=== PATIENT | male | born 1995 | race Caucasian/White ===

== ENCOUNTER → 2018-07-03 | Outpatient (CLI) | payer BC ==
--- NOTE | 2018-07-03 10:59 | MRI ---
Study: MRI of the Left Knee. Indication: PAIN IN LEFT KNEE Technique: Multiplanar, multi sequence MRI of the left knee was obtained without intravenous contrast. Comparison: None. Findings: ACL, PCL, MCL, and lateral collateral ligament complex intact. Medial meniscus and lateral meniscus intact. No high-grade chondral defect throughout the knee. Patellofemoral extensor mechanism intact. Patella normally located. Small knee effusion. No acute fracture. Impression: Intact menisci and ligaments. Small knee effusion. Electronically signed by: Dariel Gautam MD 07/03/2018 10:58 AM CDT
== END ==
LOC: RAD 07-02 14:44
PROVIDERS: ATTEND Family Medicine
DX: M25.562 Pain in left knee (principal); M25.462 Effusion, left knee

== ENCOUNTER 2019-05-01 23:28 | Emergency (ER) | payer BC ==
[2019-05-01] MEDS ORDERED: HALOPERIDOL LACTATE INJ 5 MG/ML VIAL IV ONE (23:54)
[2019-05-01] MEDS ORDERED: METOCLOPRAMIDE HCL INJ 10 MG/2 ML VIAL IV ONE (23:54)
[2019-05-01] MEDS ORDERED: KETOROLAC TROMETHAMINE INJ 30 MG/ML VIAL IV ONE (23:54)
[2019-05-01] MEDS ORDERED: diphenhydrAMINE HCL 50 MG/ML VIAL IV STA (23:54)
--- NOTE | 2019-05-02 00:02 | ED.PDOC ---
History of Present Illness - General Chief Complaint: Headache Time Seen by Provider: 05/01/19 23:52 Source: patient Exam Limitations: no limitations - History of Present Illness Initial Comments: THIS PATIENT COMES TO THE ED WITH A ONE WEEK HX OF A UNIVERSAL POWERS, RETRO-OCULAR ASSOCIATED WITH NAUSEA AND VOMIT AND SCOTOMAS. HE WAS AT WORK AND THEY NOTED THAT HIS BP WAS ELEVATED AND LORA TO COME TO THE ED. HE HAS BEEN TAKING IBUPROFEN AND TYLNOL. DENIES ANY FEVER. HE DOESN'T HAVE A HX OF HEADACHES. Timing/Duration: 1 week Quality: moderate Head Injury Location: frontal Recent Head Trauma: occasional headaches Improving Factors: nothing Worsening Factors: nothing Associated Symptoms: denies symptoms Allergies/Adverse Reactions: Allergies NO KNOWN ALLERGY Allergy (Verified 08/02/14 17:57) Home Medications: Ambulatory Orders HYDROcodone 5MG/APAP 325MG [Garnavillo 5/325] 1 ea PO PRN PRN 08/02/14 Ibuprofen [Motrin Tab] 600 mg PO Q8H PRN #15 tab 08/02/14 Review of Systems - Review of Systems Constitutional: States: no symptoms reported EENTM: States: blurred vision Respiratory: States: no symptoms reported Cardiology: States: no symptoms reported Gastrointestinal/Abdominal: States: nausea, vomiting Genitourinary: States: no symptoms reported Musculoskeletal: States: no symptoms reported Skin: States: no symptoms reported Neurological: States: see HPI, headache Endocrine: States: no symptoms reported Hematologic/Lymphatic: States: no symptoms reported Past Medical History (General) - Patient Medical History Hx Seizures: No Hx Stroke: No Hx Dementia: No Hx Asthma: No Hx of COPD: No Hx Cardiac Disorders: No Hx Congestive Heart Failure: No Hx Pacemaker: No Hx Hypertension: No Hx Thyroid Disease: No Hx Diabetes: No Hx Gastroesophageal Reflux: No Hx Renal Disease: No Hx Cancer: No Hx of HIV: No Hx Hepatitis C: No Hx MRSA: No - Vaccination History Hx Tetanus, Diphtheria Vaccination: Yes Hx Influenza Vaccination: No Hx Pneumococcal Vaccination: No - Social History Hx Tobacco Use: No Hx Chewing Tobacco Use: No Hx Alcohol Use: No Hx Substance Use: No Hx Substance Use Treatment: No Hx Depression: No Hx Physical Abuse: No Hx Emotional Abuse: No Hx Suspected Abuse: No - Female History Patient : No Family Medical History - Family History Paternal Grandparents Living Status: Still Living Hx Family Cancer: Yes - breast Maternal Grandparents Living Status: Still Living Hx Cardiac Disease: Yes Physical Exam - Physical Exam General Appearance: Alert, Well Developed, Other - SEEMS TO BE IN MODERATE DISTRESS Eyes, Ears, Nose, Throat Exam: PERRL/EOMI, TMs normal Neck: non-tender, full range of motion, supple, trachea midline Cardiovascular/Chest: normal peripheral pulses, regular rate, rhythm, no edema, no gallop, no JVD Respiratory: chest non-tender, lungs clear, normal breath sounds, no respiratory distress, no accessory muscle use Gastrointestinal/Abdominal: non tender Back Exam: normal inspection Extremity: normal range of motion, non-tender Mental Status: alert, oriented x 3 supervisor of operations Exam: normal hearing, normal speech Motor/Sensory: no motor deficit, no sensory deficit, no pronator drift Skin Exam: warm/dry Progress - Progress Progress: 05/02/19 01:11 CT OF THE BRAIN IS NEGATIVE FOR ACUTE PROCESS. THE PATIENT VOICES HEADACHE 0/10. FEELS BETTER AND DESIRES TO GO HOME,. - Results/Orders Results/Orders: 05/01/19 23:54 diphenhydrAMINE HCL [Benadryl] 50 mg IV ONCE STA Laboratory Results WBC 9.4 K/mm3 (4.8-10.8) 05/01/19 23:53 RBC 5.71 M/mm3 (4.70-6.10) 05/01/19 23:53 Hgb 16.7 gm/dL (14.0-18.0) 05/01/19 23:53 Hct 47.6 % (42.0-52.0) 05/01/19 23:53 MCV 83.5 fl (80.0-94.0) 05/01/19 23:53 MCH 29.4 pg (27.0-31.0) 05/01/19 23:53 MCHC 35.2 g/dL (33.0-37.0) 05/01/19 23:53 RDW 12.4 % (11.5-14.5) 05/01/19 23:53 Plt Count 371 K/mm3 (130-400) 05/01/19 23:53 MPV 6.5 fl (7.40-10.4) L 05/01/19 23:53 Absolute Neuts (auto) 4.50 K/uL (1.8-6.8) 05/01/19 23:53 Absolute Lymphs (auto) 3.80 K/uL (1.0-3.4) H 05/01/19 23:53 Absolute Monos (auto) 0.80 K/uL (0.2-0.8) 05/01/19 23:53 Absolute Eos (auto) 0.20 K/uL (0.0-0.4) 05/01/19 23:53 Absolute Basos (auto) 0.10 K/uL (0.0-0.1) 05/01/19 23:53 Neutrophils % 48.0 % (42.0-78.0) 05/01/19 23:53 Lymphocytes % 40.8 % (20.0-50.0) 05/01/19 23:53 Monocytes % 8.4 % (2.0-9.0) 05/01/19 23:53 Eosinophils % 1.9 % (1.0-5.0) 05/01/19 23:53 Basophils % 0.9 % (0.0-2.0) 05/01/19 23:53 Sodium 137 mmol/L (135-145) 05/01/19 23:53 Potassium 3.5 mmol/L (3.6-5.0) L 05/01/19 23:53 Chloride 105 mmol/L (101-111) 05/01/19 23:53 Carbon Dioxide 21 mmol/L (21-31) 05/01/19 23:53 Anion Gap 14.5 (12-18) 05/01/19 23:53 BUN 9 mg/dL (7-18) 05/01/19 23:53 Creatinine 1.21 mg/dL (0.6-1.3) 05/01/19 23:53 BUN/Creatinine Ratio 7.4 (10-20) L 05/01/19 23:53 Random Glucose 97 mg/dL (70-105) 05/01/19 23:53 Serum Osmolality 272.4 mOsm/L (275-295) L 05/01/19 23:53 Calcium 10.3 mg/dL (8.4-10.2) H 05/01/19 23:53 Total Bilirubin 0.4 mg/dL (0.2-1.0) 05/01/19 23:53 AST 30 IU/L (10-42) 05/01/19 23:53 ALT 33 IU/L (10-60) 05/01/19 23:53 Alkaline Phosphatase 60 IU/L (42-121) 05/01/19 23:53 Serum Total Protein 7.4 gm/dL (6.4-8.2) 05/01/19 23:53 Albumin 4.3 g/dl (3.2-5.5) 05/01/19 23:53 Globulin 3.1 gm/dL (2.3-3.5) 05/01/19 23:53 Albumin/Globulin Ratio 1.4 (1.1-1.9) 05/01/19 23:53 Departure - Departure Clinical Impression: Headache Qualifiers: Headache type: unspecified Headache chronicity pattern: acute headache Intractability: intractable Qualified Code(s): R51 - Headache Time of Disposition: 01:13 Disposition: Discharge to Home or Self Care Condition: Good Departure Forms: ED Discharge - Pt. Copy, Patient Portal Self Enrollment Instructions: DI for Headache Referrals: DEJA TOPETE MD [Primary Care Provider] - 1-2 Weeks Home Medications: Ambulatory Orders HYDROcodone 5MG/APAP 325MG [Garnavillo 5/325] 1 ea PO PRN PRN 08/02/14 Ibuprofen [Motrin Tab] 600 mg PO Q8H PRN #15 tab 08/02/14
[2019-05-02] MEDS ORDERED: diphenhydrAMINE HCL 50 MG/ML VIAL ONE (00:06)
[2019-05-02] MEDS ORDERED: diphenhydrAMINE HCL 50 MG/ML VIAL IV ONE (00:12)
--- NOTE | 2019-05-02 00:58 | CT ---
EXAM: CT Head Without Intravenous Contrast CLINICAL HISTORY: The patient is 24 years old and is Male; severe headache TECHNIQUE: Axial computed tomography images of the head/brain without intravenous contrast. Sagittal and coronal reformatted images were created and reviewed. This CT exam was performed using one or more of the following dose reduction techniques: automated exposure control, adjustment of the mA and/or kV according to patient size, and/or use of iterative reconstruction technique. COMPARISON: No relevant prior studies available. FINDINGS: BRAIN: Unremarkable. The high-white matter differentiation is preserved . No hemorrhage. No significant white matter disease. No edema. No extra-axial fluid collections. VENTRICLES: Unremarkable. No ventriculomegaly. BONES/JOINTS: No acute fracture. SOFT TISSUES: Unremarkable. SINUSES: Unremarkable as visualized. No acute sinusitis. MASTOID AIR CELLS: Unremarkable as visualized. No mastoid effusion. IMPRESSION: No acute intracranial findings. Electronically signed by: Reta Silverman MD 05/02/2019 12:56 AM CDT
[2019-05-02 04:15] VITALS: BP 123/69
[2019-05-02 04:17] VITALS: TEMP 98.4; O2SAT 96
== END 2019-05-02 01:20 | disposition home or self-care (01) ==
LOC: ER 23:28
DX: R51 Headache (principal); R11.2 Nausea with vomiting, unspecified; H53.8 Other visual disturbances
CPT/HCPCS: 36415; 70450; 80053; 85025; J1200; J1630; J1885; J2765